=== PATIENT | male | born 1945 | race American Indian/Alaskan Native ===

== ENCOUNTER 2017-01-02 07:22 | Day surgery (SDC) | payer MEDICARE ==
[2017-01-02 08:45] LABS: Basophils % (Auto) 0.6 % (0.0-1.8); Eosinophils % (Auto) 3.2 % (0.0-4.3); Hematocrit 35.7 % (35.5-45.6); Hemoglobin 11.7 gm/dl (11.8-15.2); Mean Corpuscular HGB Conc 33 % (32-34); Mean Corpuscular Hemoglobin 27 pg (28-32); Mean Corpuscular Volume 82 fl (84-94); Platelet Count 239 K/mm3 (140-440); Red Blood Count 4.34 M/mm3 (3.65-5.03); Red Cell Distribution Width 13.5 % (13.2-15.2); White Blood Count 5.3 K/mm3 (4.5-11.0)
[2017-01-02 08:56] LABS: INR 0.95 (0.87-1.13)
[2017-01-02] MEDS ORDERED: NACL 0.9% 500 ML 500 ML IV SCH (09:00)
[2017-01-02 09:15] LABS: BUN/Creatinine Ratio 13.75; Blood Urea Nitrogen 11 mg/dL (9-20); Carbon Dioxide 28 mmol/L (22-30); Glucose 94 mg/dL (75-100)
[2017-01-02 09:16] LABS: Anion Gap 16 mmol/L; Chloride 102.7 mmol/L (98-107); Potassium 3.6 mmol/L (3.6-5.0); Sodium 143 mmol/L (137-145)
[2017-01-02] MEDS ORDERED: CALAN ONE (09:57)
[2017-01-02] MEDS ORDERED: XYLOCAINE 2% INFILTRATI ONE (09:57)
[2017-01-02] MEDS ORDERED: HEPARIN 10,000 UNITS/10 ML ONE ×2 (09:57→09:59)
[2017-01-02] MEDS ORDERED: NITROGLYCERIN SYRINGE 3 ML ONE (09:58)
[2017-01-02] MEDS ORDERED: VERSED ONE (09:59)
[2017-01-02] MEDS ORDERED: SUBLIMAZE ONE (09:59)
[2017-01-02] MEDS: HEPARIN/NS 5000 UNIT/500ML(CATH LAB) 1,000 ML IR ONE ×2 (10:20→10:22)
[2017-01-02] MEDS: NACL 0.9% 1000 ML 1,000 ML IV SCH ×2 (10:20→10:23)
--- NOTE | 2017-01-02 10:52 | Discharge Summary ---
Short Stay Discharge Plan Activity: advance as tolerated Weight Bearing Status: Full Weight Bearing Diet: low fat, low cholesterol, low salt Wound: keep clean and dry Special Instructions: no heavy lifting (3 days) Follow up with: DEEPA JAIN MD [Primary Care Provider] - 7 Days KD HORN MD [Staff Physician] - 7 Days
--- NOTE | 2017-01-02 12:02 | Cardiac Catherization Report ---
CARDIAC CATHETERIZATION REASON FOR PROCEDURE: Abnormal thallium stress test. PROCEDURES PERFORMED: 1. Left heart catheterization. 2. Left ventricle angiography. 3. Selective left and right coronary angiography. The patient was prepped and draped in a sterile fashion after informed consent. The right radial cath site was prepped and draped after a negative Misael's test. The right radial artery was entered using the Seldinger technique followed by placement of a 6-Tristanian hydrophilic sheath. Routine radial cocktail was administered via the sheath. A #3.5 left Jason catheter was used for left coronary angiography. A #4 right Jason was used for right coronary angiography. The right Jason was also used for left ventricular angiography. The catheters were removed, sheath removed, and hemostasis achieved using manual compression. The patient was returned to the postprocedure unit in stable condition. There were no complications. FINDINGS: HEMODYNAMICS: Left ventricular end-diastolic pressure was 20, following coronary angiography. Ascending aortic pressure was 118/62. There was no significant pressure gradient on pullback across the aortic valve. CORONARY ANGIOGRAPHY: There was mild irregularity of the distal left main coronary artery. The left anterior descending artery also contained mild luminal irregularities in its mid segment. The first diagonal branch of the LAD contained mild ostial narrowing. Otherwise, no significant lesions were noted in the LAD diagonal system. A large ramus intermedius artery was free of significant disease. The circumflex artery and its obtuse marginal branches were free of significant disease. The right coronary artery was dominant and angiographically normal. Left ventricular systolic function was normal, ejection fraction 55% to 60%. CONCLUSION: 1. No significant coronary artery disease, essentially angiographically near normal coronary arteries. 2. Well preserved left ventricular systolic function, ejection fraction 55% to 60%. RECOMMENDATION: Risk factor modification and medical therapy. JOB# [id number] CA/NTS
[2017-01-02 13:10] VITALS: BP 88/66
== END 2017-01-02 14:10 | disposition home or self-care (01) ==
LOC: CATHLABREC 07:22
PROVIDERS: ATTEND Internal Medicine Cardiovascular Disease
DX: R94.39 Abnormal result of other cardiovascular function study (principal); M15.9 Polyosteoarthritis, unspecified; M10.9 Gout, unspecified; I10 Essential (primary) hypertension; Z98.84 Bariatric surgery status; Z82.49 Family history of ischemic heart disease and other diseases of the circulatory system; Z72.89 Other problems related to lifestyle; Z87.891 Personal history of nicotine dependence; Z79.82 Long term (current) use of aspirin; Z79.899 Other long term (current) drug therapy
CPT/HCPCS: 36415; 80048; 85025; 85610; 85730; 93005; 93010; 93458; C1894; J1644; J2250; J3010; J7040; Q9967

== ENCOUNTER 2017-05-16 10:06 | Outpatient (CLI) | payer MEDICARE ==
--- NOTE | 2017-05-16 11:45 | Ultrasound Report ---
ULTRASOUND THYROID SCAN HISTORY: Thyroid nodule. COMPARISON: None. FINDINGS: The right thyroid lobe measures 4.4 x 2.6 x 2.0 cm. A 2.4 x 2.3 x 1.8 cm predominantly solid nodule with a thin hypoechoic border is identified in the mid right thyroid lobe. There is a small cystic area anteriorly and trace flow on color Doppler analysis. No large calcifications are detected. The left thyroid lobe is normal size, contour and echotexture measuring 3.8 x 1.4 x 1.6 cm. No focal abnormality. The isthmus measures 5 mm in thickness. There is a tiny cyst measuring 2 mm in the left side of the isthmus. IMPRESSION: Slightly complex right thyroid nodule as outlined above. Ultrasound findings are equivocal. This lesion should be accessible for ultrasound guided biopsy if needed.
== END 2017-05-16 10:07 | disposition home or self-care (01) ==
LOC: US 10:06
PROVIDERS: ATTEND Internal Medicine
DX: E04.1 Nontoxic single thyroid nodule (principal)
CPT/HCPCS: 76536